=== PATIENT | male | born 1985 | race Hispanic/Latino ===

== ENCOUNTER 2017-10-09 23:54 | Emergency (ER) | payer OTHER ==
[2017-10-10 00:20] VITALS: RESP 18
[2017-10-10] MEDS ORDERED: Tdap Vaccine 0.5 ml Vial (10-64 yrs) IM ONE (00:48)
[2017-10-10] MEDS ORDERED: Absorbable Gelatin Sponge Size 12-7 TP ONE (00:48)
[2017-10-10] MEDS ORDERED: Absorbable Gelatin Sponge Size 12-7 ONE (00:49)
[2017-10-10] MEDS ORDERED: Povidone Iodine Topical 10% Sol ONE (01:25)
--- NOTE | 2017-10-10 01:47 | ED PDOC ---
HPI: Skin/Bite Injury Time Seen by Provider: 10/10/17 00:28 Chief Complaint (Nursing): Abnormal Skin Integrity History Per: Patient Additional Complaint(s): Pt. states earlier today he accidentally cut his L thumb with a tool. Denies numbness, tingling, other injury, FB sensation. Past Medical History Reviewed: Historical Data, Nursing Documentation, Vital Signs Vital Signs: Last Vital Signs Temp 98.6 F 10/10/17 01:45 Pulse 68 10/10/17 01:45 Resp 18 10/10/17 01:45 BP 128/72 10/10/17 01:45 Pulse Ox 97 10/10/17 01:47 - Medical History PMH: Gastritis - Surgical History Surgical History: No Surg Hx - Family History Family History: States: No Known Family Hx - Home Medications Home Medications: Ambulatory Orders Medication Instructions Recorded Cephalexin [Keflex] 500 mg PO Q6 #12 capsule 10/10/17 - Allergies Allergies/Adverse Reactions: Allergies Allergy/AdvReac Type Severity Reaction Status Date / Time No Known Allergies Allergy Verified 10/10/17 00:48 Review of Systems ROS Statement: Except As Marked, All Systems Reviewed And Found Negative Physical Exam - Physical Exam Appears: Positive for: Well, Non-toxic, No Acute Distress Skin: Positive for: Normal Color, Warm. Negative for: Rash Eye Exam: Positive for: Normal appearance Pulses-Radial (L): 2+ Pulses-Radial (R): 2+ Extremity: Positive for: Other (L thumb with superficial flap 1cm laceration on distal phalanx of palmar surface without active bleeding; FROM actively of L thumb) - ECG O2 Sat by Pulse Oximetry: 97 - Progress ED Course And Treament: Wound irrigated and cleansed heavily with NS. Betadine applied. Gelfoam dressing applied. Hemostasis achieved. Disposition - Clinical Impression Clinical Impression: Skin avulsion - Patient ED Disposition Is Patient to be Admitted: No - Disposition Referrals: Marlena Lynch [Outside] Disposition: Routine/Home Disposition Time: 01:45 Condition: STABLE Additional Instructions: Return to ED or go to your doctor on Wednesday for wound check. SANDRA GUTIERRES, thank you for letting us take care of you today. Your provider was Kory Patterson MD and you were treated for LT THUMB LACERATION. The emergency medical care you received today was directed at your acute symptoms. If you were prescribed any medication, please fill it and take as directed. It may take several days for your symptoms to resolve. Return to the Emergency Department if your symptoms worsen, do not improve, or if you have any other problems. Please contact your doctor or call one of the physicians/clinics you have been referred to that are listed on the Patient Visit Information form that is included in your discharge packet. Bring any paperwork you were given at discharge with you along with any medications you are taking to your follow up visit. Our treatment cannot replace ongoing medical care by a primary care provider outside of the emergency department. Thank you for allowing the [facility] team to be part of your care today. If you had an X-Ray or CT scan: A Radiologist will review the ED reading if any change in treatment is needed we will contact you. If you had a blood, urine, or wound culture: It will take several days for the results, if any change in treatment is needed we will contact you. If you had an STI test: It will take 48 hours for the results. Please call after 1 week if you have not heard back. Prescriptions: Cephalexin [Keflex] 500 mg PO Q6 #12 capsule Forms: [employer] (German), [facility] ED School/Work Excuse Print Language: ROMANIAN
[2017-10-10 02:20] VITALS: BP 128/72; PULSE 68; TEMP 98.6; O2SAT 97
== END 2017-10-10 01:50 | disposition home or self-care (01) ==
LOC: H.ER 23:54
DX: S61.012A Laceration without foreign body of left thumb without damage to nail, initial encounter (principal); W27.8XXA Contact with other nonpowered hand tool, initial encounter; Z23 Encounter for immunization